=== PATIENT | male | born 1995 | race Two or more races ===

== ENCOUNTER 2022-12-05 22:58 | Emergency (ER) | payer MEDICAID, OTHER ==
[~2022-12-05] VITALS: Ht 167.6 cm; Wt 72.7 kg
[2022-12-06] MEDS ORDERED: LORazepam 0.5 MG TAB PO ONE (03:00)
[2022-12-06 03:08] VITALS: BP 127/58
== END 2022-12-06 03:12 | disposition home or self-care (01) ==
LOC: ER 22:58
DX: F41.9 Anxiety disorder, unspecified (principal)
CPT/HCPCS: 93005